=== PATIENT | male | born 1950 | race Two or more races ===

== ENCOUNTER 2022-03-22 23:36 | Inpatient (IN) | payer MEDICARE, MEDICAID ==
[~2022-03-22] VITALS: Ht 170.2 cm; Wt 52.6 kg
[~2022-03-22 23:36] MED LIST: BENA20TA83 PO; HYDR25TA PO; INSLAN SQ; PARO30TA76 PO; ROSU10TA72 PO; VERA180T61 PO
[2022-03-23] MEDS ORDERED: SODIUM CHLORIDE 0.9% 1,400 ML IV ONE
[2022-03-23] MEDS ORDERED: OXYC10TA59 PO (00:23)
[2022-03-23] MEDS ORDERED: APIX5TAB PO (00:23)
[2022-03-23] MEDS ORDERED: LISI-892 PO (00:25)
[2022-03-23] MEDS ORDERED: TRAZ-257 PO (00:25)
[2022-03-23 00:48] LABS: BASOPHILS % (AUTO) 0.3 % (0.0-2.0); EOSINOPHILS % (AUTO) 0 % (1.0-6.0); HEMOGLOBIN 9.5 g/dL (13.5-17.5); LYMPHOCYTES % (AUTO) 13.7 % (22.0-44.0); MEAN CORPUSCULAR HEMOGLOBIN 25.6 pg (26.0-34.0); MEAN CORPUSCULAR HGB CONC 31.6 G/dL (31.0-37.0); MEAN CORPUSCULAR VOLUME 81 fL (80-100); MONOCYTES # (AUTO) 0.3 K/uL (0.1-1.0); MONOCYTES % (AUTO) 4.3 % (2.0-9.0); NEUTROPHILS # (AUTO) 6.1 K/uL (1.8-7.7); NEUTROPHILS % (AUTO) 81.7 % (40.0-70.0); PLATELET COUNT (AUTO) 186 K/uL (150-450); RED BLOOD CELL COUNT(AUTO) 3.69 MIL/uL (4.50-5.90); RED CELL DISTRIBUTION WIDTH 17.4 % (11.5-14.5)
[2022-03-23 00:57] LABS: CALCIUM, TOTAL 8.2 mg/dL (8.8-10.5); CREATININE 1.57 mg/dL (0.60-1.30); POTASSIUM 3.7 mmol/L (3.5-5.1)
[2022-03-23 01:05] LABS: ABG BASE EXCESS -4.7 mmol/L (-2.0-3.0); ABG CARBOXYHEMOGLOBIN 1.5 % (0.0-1.5); ABG METHEMOGLOBIN 0.3 % (0.0-1.5); ABG OXYGEN CONTENT 12.4 mL/dL (15.0-23.0); ABG OXYGEN SATURATION 99.7 % (95.0-98.0); ABG OXYHEMOGLOBIN 97.9 % (94.0-100.0); ABG PCO2 32 mmHg (35-45); ABG PH 7.407 (7.35-7.450); ABG TOTAL HEMOGLOBIN 8.2 G/dL (12.0-18.0); PO2, ARTERIAL BG 382.8 mmHg (75.0-83.0); SOURCE, BLOOD GAS ARTERIAL; TEMPERATURE, FAHRENHEIT, BG 98.6 FAHREN (96.0-98.6)
[2022-03-23 01:06] LABS: O2 DEVICE,BLOOD GAS BIPAP (ROOM AIR); SITE, BLOOD GAS RT RADIAL
[2022-03-23 01:11] LABS: INFLUENZA TYPE A NEGATIVE FOR TYPE A (NEGATIVE); INFLUENZA TYPE B NEGATIVE FOR TYPE B (NEGATIVE)
[2022-03-23] MEDS ORDERED: AZITHROMYCIN 500 MG/NS 250 ML IV ONE (01:15)
[2022-03-23] MEDS ORDERED: CefTRIAXone 1 GM/DEXTROSE 50 ML IV ONE (01:15)
[2022-03-23] MEDS ORDERED: ACETAMINOPHEN 1000 MG/ISO-OSM 100 ML IV ONE (01:15)
[2022-03-23 01:16] LABS: BILIRUBIN,TOTAL 0.2 mg/dL (0.1-1.0); C-REACTIVE PROTEIN QUANT 14.99 mg/dL (0.00-0.30); TOTAL PROTEIN, SERUM 5.5 g/dL (6.4-8.2)
[2022-03-23] MEDS: NOREPINEPHRINE 8 MG/D5%-WATER 250 ML IV PRN ×2 (02:10→02:51)
[2022-03-23] MEDS ORDERED: ACETAMINOPHEN 325 MG TABLET PO PRN (02:45)
[2022-03-23] MEDS ORDERED: ONDANSETRON HCL 4 MG/2 ML VIAL IVP PRN ×2 (02:45→03:30)
[2022-03-23] MEDS ORDERED: 0.9% SODIUM CHLORIDE 10 ML SYRINGE IVP PRN ×2 (02:45)
[2022-03-23] MEDS ORDERED: NOREPINEPHRINE 8 MG/D5%-WATER 250 ML IV PRN (03:30)
[2022-03-23 03:31] LABS: APPEARANCE,URINE HAZY (CLEAR); BILIRUBIN,URINE NEGATIVE (NEGATIVE); GLUCOSE, URINE (UA) 70-100 mg/dL (NEGATIVE); KETONES,URINE NEGATIVE (NEGATIVE); LEUKOCYTE ESTERASE ,URINE NEGATIVE (NEGATIVE); NITRATE,URINE NEGATIVE (NEGATIVE); OCCULT BLOOD,URINE NEGATIVE (NEGATIVE); PH,URINE 5.5 (5.0-8.0); PROTEIN,URINE 30-70 mg/dL (NEGATIVE); SPECIFIC GRAVITIY, URINE 1.023 (1.003-1.030); UROBILINOGEN,URINE <=1.0 mg/dL (<=1.0)
[2022-03-23 03:36] LABS: INR 1.3 (0.9-1.1); PROTHROMBIN TIME 13.5 SEC (9.4-11.6)
[2022-03-23 03:42] LABS: LACTIC ACID 0.9 mmol/L (0.4-2.0)
[2022-03-23 03:45] LABS: CREATININE,URINE RANDOM 146.4 mg/dL (30.0-125.0)
[2022-03-23 03:50] LABS: BACTERIA,URINE None Seen /HPF (None Seen); RBC,URINE 0-2 /HPF (0-2); SQUAMOUS EPITHELIAL CELL,UR Rare /LPF (None Seen); WBC,URINE 0-2 /HPF (0-5)
[2022-03-23 03:58] LABS: D-DIMER 0.76 mg/L FEU (0.00-0.50)
[2022-03-23] MEDS ORDERED: DEXTROSE 50%-WATER 25 GM/50 ML SYRINGE IVP PRN (04:00)
[2022-03-23 04:33] LABS: CALCIUM, TOTAL 7.7 mg/dL (8.8-10.5); CREATININE 1.4 mg/dL (0.60-1.30); HEMATOCRIT 26.1 % (41-53); HEMOGLOBIN 8.4 g/dL (13.5-17.5); POTASSIUM 3.4 mmol/L (3.5-5.1)
[2022-03-23 04:55] LABS: % IRON SATURATION 3.9 % (30-44)
[2022-03-23] MEDS ORDERED: DOPamine 400MG/D5W[STANDARD] 250 ML IV PRN (05:15)
[2022-03-23] MEDS ORDERED: HEPARIN SODIUM,PORCINE 5,000 UNITS/ML VIAL SQ SCH (08:00)
[2022-03-23] MEDS ORDERED: SODIUM CHLORIDE 0.9% 100 ML ONE (08:09)
[2022-03-23] MEDS ORDERED: IOHEXOL 350 MG/ML 100 ML VIAL ONE (08:09)
[2022-03-23] MEDS: APIXABAN 5 MG TABLET PO SCH ×3 (09:00→20:57)
[2022-03-23] MEDS: RINGERS SOLUTION,LACTATED 1,000 ML IV SCH (09:00)
[2022-03-23] MEDS ORDERED: OXYC5 PO (10:49)
[2022-03-23] MEDS ORDERED: HYDR25TA2 PO (10:49)
[2022-03-23] MEDS ORDERED: MELATONIN 5 MG TABLET PO ONE (20:30)
[2022-03-23] MEDS: ACETAMINOPHEN 325 MG TABLET PO PRN (20:57)
[2022-03-23] MEDS ORDERED: TraZODone HCL 100 MG TABLET PO SCH (21:00)
[2022-03-23] MEDS: PARoxetine HCL 20 MG TABLET PO SCH (21:21)
[2022-03-23] MEDS: ROSUVASTATIN CALCIUM 10 MG TABLET PO SCH (21:21)
[2022-03-23 23:07] VITALS: BP 108/51
[2022-03-24] VITALS: BP 116/52
[2022-03-24] MEDS: CefTRIAXone 1 GM/DEXTROSE 50 ML IV SCH (00:13)
[2022-03-24] MEDS: AZITHROMYCIN 500 MG/NS 250 ML IV SCH (01:55)
[2022-03-24 04:18] VITALS: BP 112/53
[2022-03-24] MEDS: RINGERS SOLUTION,LACTATED 1,000 ML IV SCH (05:24)
[2022-03-24 06:36] LABS: GLUCOMETER DEV NAME(LOC) 5S.2B; GLUCOSE,POINT OF CARE 155 MG/DL (70-110)
[2022-03-24 07:22] LABS: BASOPHILS % (AUTO) 0.2 % (0.0-2.0); EOSINOPHILS % (AUTO) 0.2 % (1.0-6.0); HEMATOCRIT 26.4 % (41-53); HEMOGLOBIN 8.6 g/dL (13.5-17.5); LYMPHOCYTES # (AUTO) 0.5 K/uL (1.0-4.8); LYMPHOCYTES % (AUTO) 9.7 % (22.0-44.0); MEAN CORPUSCULAR HEMOGLOBIN 25.9 pg (26.0-34.0); MEAN CORPUSCULAR HGB CONC 32.5 G/dL (31.0-37.0); MEAN CORPUSCULAR VOLUME 80 fL (80-100); MONOCYTES # (AUTO) 0.2 K/uL (0.1-1.0); MONOCYTES % (AUTO) 4.4 % (2.0-9.0); NEUTROPHILS # (AUTO) 4.3 K/uL (1.8-7.7); PLATELET COUNT (AUTO) 175 K/uL (150-450); RED BLOOD CELL COUNT(AUTO) 3.32 MIL/uL (4.50-5.90); RED CELL DISTRIBUTION WIDTH 17.4 % (11.5-14.5)
[2022-03-24 07:31] LABS: NEUTROPHILS % (AUTO) 85.5 % (40.0-70.0)
[2022-03-24 07:47] VITALS: BP 106/52
[2022-03-24 07:58] LABS: ALANINE AMINOTRANSFERASE 293 U/L (12-78); ALBUMIN 1.8 g/dL (3.4-5.0); ALKALINE PHOSPHATASE 61 U/L (46-116); ANION GAP 5 mmol/L (8-16); ASPARTATE AMINOTRANSFERASE 182 U/L (15-37); BILIRUBIN,TOTAL 0.3 mg/dL (0.1-1.0); CALCIUM, TOTAL 7.8 mg/dL (8.8-10.5); CARBON DIOXIDE 26 mmol/L (22-29); CHLORIDE 102 mmol/L (98-107); GLUCOSE,RANDOM 169 mg/dL (70-110); POTASSIUM 3.3 mmol/L (3.5-5.1); SODIUM SERUM 133 mmol/L (136-145); TOTAL PROTEIN, SERUM 5.2 g/dL (6.4-8.2); UREA NITROGEN, BLOOD 20 mg/dL (7-18)
[2022-03-24 08:04] LABS: GLOMERULAR FILTR. RATE CALC > 60 mL/min (>60)
[2022-03-24] MEDS ORDERED: POTASSIUM CHLORIDE 20 MEQ ER TABLET PO ONE (08:45)
[2022-03-24] MEDS: APIXABAN 5 MG TABLET PO SCH ×2 (09:00→20:46)
[2022-03-24] MEDS: MAGNESIUM OXIDE 400 MG TABLET PO SCH ×2 (09:14→14:38)
[2022-03-24 10:55] VITALS: BP 139/58
[2022-03-24] MEDS ORDERED: REMDESIVIR 200 MG in SODIUM CHLORIDE 0.9% 250 ML IV ONE (11:45)
[2022-03-24] MEDS: INSULIN LISPRO 100 UNITS/ML SQ PRN ×2 (11:50→20:29)
[2022-03-24] MEDS ORDERED: SODIUM CHLORIDE 0.9% 250 ML IV ONE (14:32)
[2022-03-24] MEDS: DEXAMETHASONE 4 MG TABLET PO SCH (14:38)
[2022-03-24 16:11] VITALS: BP 120/70
[2022-03-24] MEDS: ROSUVASTATIN CALCIUM 10 MG TABLET PO SCH (20:25)
[2022-03-24] MEDS: PARoxetine HCL 20 MG TABLET PO SCH (20:25)
[2022-03-24] MEDS: ACETAMINOPHEN 325 MG TABLET PO PRN (20:25)
[2022-03-24 20:51] VITALS: BP 118/56
[2022-03-24 21:02] LABS: GLUCOMETER DEV NAME(LOC) 5S.2B; GLUCOSE,POINT OF CARE 139 MG/DL (70-110)
[2022-03-24 21:02] LABS: GLUCOMETER DEV NAME(LOC) 5S.2B; GLUCOSE,POINT OF CARE 153 MG/DL (70-110)
[2022-03-24 21:02] LABS: GLUCOMETER DEV NAME(LOC) 5S.2B; GLUCOSE,POINT OF CARE 218 MG/DL (70-110)
[2022-03-25] MEDS: RINGERS SOLUTION,LACTATED 1,000 ML IV SCH (00:13)
[2022-03-25] MEDS: CefTRIAXone 1 GM/DEXTROSE 50 ML IV SCH (00:13)
[2022-03-25 01:10] VITALS: BP 120/66
[2022-03-25] MEDS: AZITHROMYCIN 500 MG/NS 250 ML IV SCH (01:37)
[2022-03-25 06:05] VITALS: BP 107/62
[2022-03-25 07:23] VITALS: BP 121/61
[2022-03-25] MEDS: ACETAMINOPHEN 325 MG TABLET PO PRN ×2 (08:42→20:32)
[2022-03-25] MEDS: DEXAMETHASONE 4 MG TABLET PO SCH (08:42)
[2022-03-25] MEDS: APIXABAN 5 MG TABLET PO SCH ×2 (08:42→20:32)
[2022-03-25 11:05] VITALS: BP 129/63
[2022-03-25] MEDS: REMDESIVIR 100 MG in SODIUM CHLORIDE 0.9% 250 ML IV SCH (11:41)
[2022-03-25] MEDS: INSULIN LISPRO 100 UNITS/ML SQ PRN ×2 (11:42→17:14)
[2022-03-25 12:03] LABS: BASOPHILS % (AUTO) 0.1 % (0.0-2.0); EOSINOPHILS % (AUTO) 0 % (1.0-6.0); HEMATOCRIT 31.7 % (41-53); HEMOGLOBIN 10.1 g/dL (13.5-17.5); LYMPHOCYTES # (AUTO) 0.4 K/uL (1.0-4.8); LYMPHOCYTES % (AUTO) 5.4 % (22.0-44.0); MEAN CORPUSCULAR HEMOGLOBIN 25.1 pg (26.0-34.0); MEAN CORPUSCULAR HGB CONC 31.9 G/dL (31.0-37.0); MEAN CORPUSCULAR VOLUME 79 fL (80-100); MONOCYTES # (AUTO) 0.3 K/uL (0.1-1.0); MONOCYTES % (AUTO) 5.1 % (2.0-9.0); NEUTROPHILS # (AUTO) 6.1 K/uL (1.8-7.7); PLATELET COUNT (AUTO) 219 K/uL (150-450); RED BLOOD CELL COUNT(AUTO) 4.02 MIL/uL (4.50-5.90); RED CELL DISTRIBUTION WIDTH 17.7 % (11.5-14.5)
[2022-03-25 12:10] LABS: NEUTROPHILS % (AUTO) 89.4 % (40.0-70.0)
[2022-03-25 12:55] LABS: ALANINE AMINOTRANSFERASE 225 U/L (12-78); ALBUMIN 1.9 g/dL (3.4-5.0); ALKALINE PHOSPHATASE 64 U/L (46-116); ANION GAP 12 mmol/L (8-16); ASPARTATE AMINOTRANSFERASE 133 U/L (15-37); BILIRUBIN,TOTAL 0.3 mg/dL (0.1-1.0); C-REACTIVE PROTEIN QUANT 8.21 mg/dL (0.00-0.30); CALCIUM, TOTAL 8.1 mg/dL (8.8-10.5); CARBON DIOXIDE 23 mmol/L (22-29); CHLORIDE 98 mmol/L (98-107); CREATININE 0.71 mg/dL (0.60-1.30); FERRITIN 395 ng/mL (26-388); GLUCOSE,RANDOM 183 mg/dL (70-110); POTASSIUM 4.6 mmol/L (3.5-5.1); SODIUM SERUM 133 mmol/L (136-145); TOTAL PROTEIN, SERUM 5.5 g/dL (6.4-8.2); UREA NITROGEN, BLOOD 20 mg/dL (7-18)
[2022-03-25 12:59] LABS: GLOMERULAR FILTR. RATE CALC > 60 mL/min (>60)
[2022-03-25] MEDS ORDERED: MAGNESIUM SULFATE 1 GM in DEXTROSE 5%-WATER 50 ML IV ONE (15:30)
[2022-03-25 15:38] VITALS: BP 116/61
[2022-03-25 15:51] LABS: GLUCOMETER DEV NAME(LOC) 5S.2B; GLUCOSE,POINT OF CARE 180 MG/DL (70-110)
[2022-03-25] MEDS: LOSARTAN POTASSIUM 25 MG TABLET PO SCH (17:10)
[2022-03-25] MEDS: BENZONATATE 100 MG CAPSULE PO SCH ×2 (17:10→20:32)
[2022-03-25 19:01] LABS: GLUCOMETER DEV NAME(LOC) 5S.2B; GLUCOSE,POINT OF CARE 259 MG/DL (70-110)
[2022-03-25 20:31] VITALS: BP 142/61
[2022-03-25] MEDS: PARoxetine HCL 20 MG TABLET PO SCH (20:32)
[2022-03-25] MEDS: ROSUVASTATIN CALCIUM 10 MG TABLET PO SCH (20:32)
[2022-03-26 00:16] VITALS: BP 135/64
[2022-03-26] MEDS: CefTRIAXone 1 GM/DEXTROSE 50 ML IV SCH (02:30)
[2022-03-26] MEDS: AZITHROMYCIN 500 MG/NS 250 ML IV SCH (03:21)
[2022-03-26 05:39] VITALS: BP 128/59
[2022-03-26 05:52] LABS: GLUCOMETER DEV NAME(LOC) 5S.2B; GLUCOSE,POINT OF CARE 140 MG/DL (70-110)
[2022-03-26] MEDS: BENZONATATE 100 MG CAPSULE PO SCH ×3 (08:15→20:17)
[2022-03-26] MEDS: DEXAMETHASONE 4 MG TABLET PO SCH (08:15)
[2022-03-26] MEDS: LOSARTAN POTASSIUM 25 MG TABLET PO SCH (08:15)
[2022-03-26] MEDS: APIXABAN 5 MG TABLET PO SCH ×2 (08:15→20:17)
[2022-03-26 08:32] VITALS: BP 132/62
[2022-03-26 08:32] LABS: ALANINE AMINOTRANSFERASE 197 U/L (12-78); ALBUMIN 2.1 g/dL (3.4-5.0); ALKALINE PHOSPHATASE 62 U/L (46-116); ANION GAP 10 mmol/L (8-16); ASPARTATE AMINOTRANSFERASE 92 U/L (15-37); BILIRUBIN,TOTAL 0.4 mg/dL (0.1-1.0); CALCIUM, TOTAL 8.2 mg/dL (8.8-10.5); CARBON DIOXIDE 23 mmol/L (22-29); CHLORIDE 98 mmol/L (98-107); CREATININE 0.66 mg/dL (0.60-1.30); GLUCOSE,RANDOM 162 mg/dL (70-110); SODIUM SERUM 131 mmol/L (136-145); TOTAL PROTEIN, SERUM 5.7 g/dL (6.4-8.2); UREA NITROGEN, BLOOD 18 mg/dL (7-18)
[2022-03-26 08:37] LABS: GLOMERULAR FILTR. RATE CALC > 60 mL/min (>60)
[2022-03-26 11:29] VITALS: BP 141/63
[2022-03-26] MEDS: INSULIN LISPRO 100 UNITS/ML SQ PRN (12:33)
[2022-03-26] MEDS: REMDESIVIR 100 MG in SODIUM CHLORIDE 0.9% 250 ML IV SCH (12:35)
[2022-03-26 15:14] VITALS: BP 103/58
[2022-03-26 18:11] LABS: GLUCOMETER DEV NAME(LOC) 5S.2B; GLUCOSE,POINT OF CARE 223 MG/DL (70-110)
[2022-03-26 18:11] LABS: GLUCOMETER DEV NAME(LOC) 5S.2B; GLUCOSE,POINT OF CARE 145 MG/DL (70-110)
[2022-03-26] MEDS: ROSUVASTATIN CALCIUM 10 MG TABLET PO SCH (20:17)
[2022-03-26] MEDS: PARoxetine HCL 20 MG TABLET PO SCH (20:17)
[2022-03-26] MEDS: ACETAMINOPHEN 325 MG TABLET PO PRN (20:18)
[2022-03-26 20:46] VITALS: BP 118/67
[2022-03-27] MEDS: CefTRIAXone 1 GM/DEXTROSE 50 ML IV SCH (02:20)
[2022-03-27] MEDS: AZITHROMYCIN 500 MG/NS 250 ML IV SCH (03:32)
[2022-03-27 06:09] VITALS: BP 124/54
[2022-03-27] MEDS: INSULIN LISPRO 100 UNITS/ML SQ PRN ×3 (06:29→16:55)
[2022-03-27 06:36] LABS: GLUCOMETER DEV NAME(LOC) 5S.2B; GLUCOSE,POINT OF CARE 195 MG/DL (70-110)
[2022-03-27 08:49] VITALS: BP 126/71
[2022-03-27] MEDS ORDERED: METOPROLOL SUCCINATE 25 MG ER TABLET PO SCH (09:00)
[2022-03-27] MEDS: BENZONATATE 100 MG CAPSULE PO SCH ×3 (09:35→20:32)
[2022-03-27] MEDS: APIXABAN 5 MG TABLET PO SCH ×2 (09:35→20:32)
[2022-03-27] MEDS: LOSARTAN POTASSIUM 25 MG TABLET PO SCH (09:35)
[2022-03-27] MEDS: DEXAMETHASONE 4 MG TABLET PO SCH (09:35)
[2022-03-27] MEDS: ACETAMINOPHEN 325 MG TABLET PO PRN ×2 (09:46→20:31)
[2022-03-27 12:01] VITALS: BP 121/63
[2022-03-27] MEDS: REMDESIVIR 100 MG in SODIUM CHLORIDE 0.9% 250 ML IV SCH (12:19)
[2022-03-27 12:37] LABS: ALANINE AMINOTRANSFERASE 152 U/L (12-78); ALBUMIN 1.8 g/dL (3.4-5.0); ALKALINE PHOSPHATASE 55 U/L (46-116); ASPARTATE AMINOTRANSFERASE 60 U/L (15-37); BILIRUBIN,TOTAL 0.2 mg/dL (0.1-1.0); C-REACTIVE PROTEIN QUANT 5.98 mg/dL (0.00-0.30); CALCIUM, TOTAL 7.9 mg/dL (8.8-10.5); CARBON DIOXIDE 26 mmol/L (22-29); CREATININE 0.58 mg/dL (0.60-1.30); GLUCOSE,RANDOM 208 mg/dL (70-110); TOTAL PROTEIN, SERUM 5.2 g/dL (6.4-8.2); UREA NITROGEN, BLOOD 17 mg/dL (7-18)
[2022-03-27 14:00] LABS: ANION GAP 8 mmol/L (8-16); CHLORIDE 101 mmol/L (98-107); GLOMERULAR FILTR. RATE CALC > 60 mL/min (>60); POTASSIUM 3.9 mmol/L (3.5-5.1); SODIUM SERUM 135 mmol/L (136-145)
[2022-03-27 15:07] LABS: S PNEUMO SOURCE Urine; STREP PNEUMONIAE AG URINE Negative (Negative)
[2022-03-27 16:06] LABS: LEGIONELLA PNEUMO AG URINE Negative (Negative)
[2022-03-27 16:33] VITALS: BP 108/47
[2022-03-27] MEDS: ROSUVASTATIN CALCIUM 10 MG TABLET PO SCH (20:31)
[2022-03-27] MEDS: PARoxetine HCL 20 MG TABLET PO SCH (20:32)
[2022-03-27 21:14] VITALS: BP 122/53
[2022-03-27 21:31] LABS: GLUCOMETER DEV NAME(LOC) 5S.2B; GLUCOSE,POINT OF CARE 254 MG/DL (70-110)
[2022-03-27 21:31] LABS: GLUCOMETER DEV NAME(LOC) 5S.2B; GLUCOSE,POINT OF CARE 310 MG/DL (70-110)
[2022-03-28 00:19] VITALS: BP 133/59
[2022-03-28] MEDS: CefTRIAXone 1 GM/DEXTROSE 50 ML IV SCH (01:14)
[2022-03-28] MEDS: AZITHROMYCIN 500 MG/NS 250 ML IV SCH (03:45)
[2022-03-28 04:00] VITALS: BP 130/68
[2022-03-28 07:36] VITALS: BP 123/60
[2022-03-28] MEDS: BENZONATATE 100 MG CAPSULE PO SCH ×3 (08:52→21:04)
[2022-03-28] MEDS: LOSARTAN POTASSIUM 25 MG TABLET PO SCH (08:52)
[2022-03-28] MEDS: APIXABAN 5 MG TABLET PO SCH ×2 (08:53→21:04)
[2022-03-28] MEDS: METOPROLOL SUCCINATE 25 MG ER TABLET PO SCH (08:53)
[2022-03-28] MEDS: DEXAMETHASONE 4 MG TABLET PO SCH (08:53)
[2022-03-28] MEDS ORDERED: PARO-38 PO (09:14)
[2022-03-28 10:31] LABS: ALANINE AMINOTRANSFERASE 122 U/L (12-78); ALBUMIN 1.8 g/dL (3.4-5.0); ALKALINE PHOSPHATASE 60 U/L (46-116); ANION GAP 8 mmol/L (8-16); ASPARTATE AMINOTRANSFERASE 53 U/L (15-37); BILIRUBIN,TOTAL 0.2 mg/dL (0.1-1.0); CALCIUM, TOTAL 7.7 mg/dL (8.8-10.5); CARBON DIOXIDE 24 mmol/L (22-29); CHLORIDE 101 mmol/L (98-107); CREATININE 0.61 mg/dL (0.60-1.30); GLUCOSE,RANDOM 304 mg/dL (70-110); SODIUM SERUM 133 mmol/L (136-145); TOTAL PROTEIN, SERUM 5.2 g/dL (6.4-8.2); UREA NITROGEN, BLOOD 16 mg/dL (7-18)
[2022-03-28 10:32] LABS: GLOMERULAR FILTR. RATE CALC > 60 mL/min (>60)
[2022-03-28] MEDS ORDERED: MAGNESIUM SULFATE 2 GM/WATER 50 ML IV PRN (10:45)
[2022-03-28] MEDS ORDERED: MAGNESIUM SULFATE 4 GM/WATER 100 ML IV PRN (10:45)
[2022-03-28] MEDS: MAGNESIUM OXIDE 400 MG TABLET PO PRN ×3 (10:55→17:06)
[2022-03-28] MEDS: INSULIN GLARGINE,HUM.REC.ANLOG 100 UNITS/ML SQ SCH (12:00)
[2022-03-28] MEDS: INSULIN LISPRO 100 UNITS/ML SQ PRN ×3 (12:01→21:23)
[2022-03-28] MEDS: REMDESIVIR 100 MG in SODIUM CHLORIDE 0.9% 250 ML IV SCH (12:02)
[2022-03-28 12:11] VITALS: BP 109/57
[2022-03-28 15:57] VITALS: BP 116/62
[2022-03-28 19:56] LABS: GLUCOMETER DEV NAME(LOC) 5S.2B; GLUCOSE,POINT OF CARE 254 MG/DL (70-110)
[2022-03-28 19:56] LABS: GLUCOMETER DEV NAME(LOC) 5S.2B; GLUCOSE,POINT OF CARE 305 MG/DL (70-110)
[2022-03-28 19:58] VITALS: BP 126/64
[2022-03-28] MEDS: ROSUVASTATIN CALCIUM 10 MG TABLET PO SCH (21:04)
[2022-03-28] MEDS: PARoxetine HCL 20 MG TABLET PO SCH (21:24)
[2022-03-28 22:16] LABS: GLUCOMETER DEV NAME(LOC) 5S.2B; GLUCOSE,POINT OF CARE 211 MG/DL (70-110)
[2022-03-29] MEDS: CefTRIAXone 1 GM/DEXTROSE 50 ML IV SCH (00:30)
[2022-03-29] MEDS: AZITHROMYCIN 500 MG/NS 250 ML IV SCH (02:36)
[2022-03-29 05:13] VITALS: BP 133/78
[2022-03-29 08:00] VITALS: BP 139/59
[2022-03-29 08:01] LABS: ANION GAP 6 mmol/L (8-16); C-REACTIVE PROTEIN QUANT 1.57 mg/dL (0.00-0.30); CARBON DIOXIDE 29 mmol/L (22-29); CHLORIDE 104 mmol/L (98-107); CREATININE 0.64 mg/dL (0.60-1.30); GLUCOSE,RANDOM 129 mg/dL (70-110); SODIUM SERUM 139 mmol/L (136-145); UREA NITROGEN, BLOOD 16 mg/dL (7-18)
[2022-03-29 08:08] LABS: GLOMERULAR FILTR. RATE CALC > 60 mL/min (>60)
[2022-03-29] MEDS ORDERED: THIAMINE 100 MG TABLET PO SCH (09:00)
[2022-03-29] MEDS ORDERED: MULTIVITAMINS WITH MINERALS, THERAPEUTIC TABLET PO SCH (09:00)
[2022-03-29] MEDS: APIXABAN 5 MG TABLET PO SCH ×2 (09:26→23:06)
[2022-03-29] MEDS: DEXAMETHASONE 4 MG TABLET PO SCH (09:26)
[2022-03-29] MEDS: METOPROLOL SUCCINATE 25 MG ER TABLET PO SCH (09:26)
[2022-03-29] MEDS: BENZONATATE 100 MG CAPSULE PO SCH ×3 (09:27→23:06)
[2022-03-29] MEDS: LOSARTAN POTASSIUM 25 MG TABLET PO SCH (09:27)
[2022-03-29] MEDS: INSULIN GLARGINE,HUM.REC.ANLOG 100 UNITS/ML SQ SCH (09:32)
[2022-03-29] MEDS ORDERED: DENTURE ADHESIVE 68 GM CREAM DT PRN (10:00)
[2022-03-29 10:06] LABS: GLUCOMETER DEV NAME(LOC) 5N.1C; GLUCOSE,POINT OF CARE 231 MG/DL (70-110)
[2022-03-29 10:06] LABS: GLUCOMETER DEV NAME(LOC) 5S.2B; GLUCOSE,POINT OF CARE 101 MG/DL (70-110)
[2022-03-29 11:40] VITALS: BP 142/62
[2022-03-29] MEDS: INSULIN LISPRO 100 UNITS/ML SQ PRN ×2 (12:05→17:58)
[2022-03-29 16:30] VITALS: BP 129/77
[2022-03-29 18:06] LABS: GLUCOMETER DEV NAME(LOC) 5S.2B; GLUCOSE,POINT OF CARE 249 MG/DL (70-110)
[2022-03-29] MEDS ORDERED: BENZ-70 PO (18:12)
[2022-03-29] MEDS ORDERED: LOSA-381 PO (18:13)
[2022-03-29] MEDS ORDERED: INSLAN SQ (18:13)
[2022-03-29] MEDS ORDERED: METO25XL PO (18:14)
[2022-03-29] MEDS ORDERED: MULT-1203 PO (18:14)
[2022-03-29] MEDS ORDERED: THIA100T80 PO (18:15)
[2022-03-29] MEDS ORDERED: ACET-2247 PO (18:16)
[2022-03-29] MEDS ORDERED: INSU100V SQ (18:16)
[2022-03-29 19:26] LABS: GLUCOMETER DEV NAME(LOC) 5N.1C; GLUCOSE,POINT OF CARE 318 MG/DL (70-110)
[2022-03-29 19:45] VITALS: BP 140/64
[2022-03-29] MEDS: ROSUVASTATIN CALCIUM 10 MG TABLET PO SCH (23:05)
[2022-03-29] MEDS: PARoxetine HCL 20 MG TABLET PO SCH (23:08)
[2022-03-30 01:15] VITALS: BP 124/81
[2022-03-30 05:54] VITALS: BP 128/88
[2022-03-30 06:06] LABS: GLUCOMETER DEV NAME(LOC) 5S.2B; GLUCOSE,POINT OF CARE 186 MG/DL (70-110)
[2022-03-30] MEDS: INSULIN LISPRO 100 UNITS/ML SQ PRN (06:12)
== END 2022-03-30 08:30 | DRG 871 ==
LOC: EMS 23:40 → 5N 03-23 21:18
PROVIDERS: ADMIT Internal Medicine; ATTEND Internal Medicine
PROC: 5A09357 Assistance with Respiratory Ventilation, Less than 24 Consecutive Hours, Continuous Positive Airway Pressure (ICD-10-PCS; principal; 2022-03-23)
PROC: XW033E5 Introduction of Remdesivir Anti-infective into Peripheral Vein, Percutaneous Approach, New Technology Group 5 (ICD-10-PCS; 2022-03-23)
DX: A41.9 Sepsis, unspecified organism (principal); E43 Unspecified severe protein-calorie malnutrition; J12.82 Pneumonia due to coronavirus disease 2019; J96.01 Acute respiratory failure with hypoxia; U07.1 COVID-19; D68.9 Coagulation defect, unspecified; N17.9 Acute kidney failure, unspecified; R57.9 Shock, unspecified; I50.22 Chronic systolic (congestive) heart failure; R64 Cachexia; Z68.1 Body mass index [BMI] 19.9 or less, adult; D64.9 Anemia, unspecified; D72.810 Lymphocytopenia; D73.89 Other diseases of spleen; E11.40 Type 2 diabetes mellitus with diabetic neuropathy, unspecified; E11.51 Type 2 diabetes mellitus with diabetic peripheral angiopathy without gangrene; F32.A Depression, unspecified; I11.0 Hypertensive heart disease with heart failure; I25.10 Atherosclerotic heart disease of native coronary artery without angina pectoris; R62.7 Adult failure to thrive; F41.9 Anxiety disorder, unspecified; L89.159 Pressure ulcer of sacral region, unspecified stage; R79.89 Other specified abnormal findings of blood chemistry; R79.82 Elevated C-reactive protein (CRP); F17.210 Nicotine dependence, cigarettes, uncomplicated; R74.01 Elevation of levels of liver transaminase levels; I44.7 Left bundle-branch block, unspecified; Z78.9 Other specified health status; Z79.01 Long term (current) use of anticoagulants; Z79.4 Long term (current) use of insulin; Z86.73 Personal history of transient ischemic attack (TIA), and cerebral infarction without residual deficits; Z89.611 Acquired absence of right leg above knee
CPT/HCPCS: 36600; 51702; 70450; 71045; 71275; 74177; 80048; 80053; 81001; 81003; 82550; 82570; 82728; 82805; 82962; 83540; 83550; 83605; 83615; 83735; 83880; 84145; 84300; 84484; 85014; 85018; 85025; 85045; 85379; 85384; 85610; 85730; 86140; 87040; 87449; 87804; 87899; 93005; 93306; 93971; 94660; 97162; 99291; J0131; J0456; J0696; J1265; J1815; J3475; J7050; J7060; J7120; J8540; Q9967; 36415-L1; 36415-TC; U0003